=== PATIENT | female | born 1985 | race Caucasian/White ===

== ENCOUNTER 2019-11-23 22:42 | Emergency (ER) | payer SELFPAY ==
[~2019-11-23] VITALS: Ht 167.6 cm; Wt 63.6 kg
--- NOTE | 2019-11-23 23:14 | PHYS DOC ---
General Adult EDM: Chief Complaint: ANXIETY/PANIC ATTACK HPI: HPI: Patient is a 34 year old female presents with a chief complaint of shortness of breath and heart racing. Patient states she drank last night. She took a an unknown hangover tablet this a.m. around 10:00. Patient states all day she is not felt right she has had some chest discomfort associated with shortness of breath. Patient admits to drinking at least 4 beers this evening. She states she was out at a pond all day. On arrival patient's heart rate in the 120s. Review of Systems: Review of Systems: Constitutional: Denies fever or chills. [] Eyes: Denies change in visual acuity. [] HENT: Denies nasal congestion or sore throat. [] Respiratory: Positive shortness of breath. [] Cardiovascular: Positive tachycardia positive chest discomfort GI: Denies abdominal pain, nausea, vomiting, bloody stools or diarrhea. [] : Denies dysuria. [] Musculoskeletal: Denies back pain or joint pain. [] Integument: Denies rash. [] Neurologic: Denies headache, focal weakness or sensory changes. [] Endocrine: Denies polyuria or polydipsia. [] Lymphatic: Denies swollen glands. [] Psychiatric: Denies depression or anxiety. [] Heart Score: Risk Factors: Risk Factors: DM, Current or recent (<one month) smoker, HTN, HLP, family history of CAD, obesity. Risk Scores: Score 0 - 3: 2.5% MACE over next 6 weeks - Discharge Home Score 4 - 6: 20.3% MACE over next 6 weeks - Admit for Clinical Observation Score 7 - 10: 72.7% MACE over next 6 weeks - Early Invasive Strategies Allergies: Allergies: Allergies Coded Allergies Type Severity Reaction Last Updated Verified Sulfa (Sulfonamide Antibiotics) Adverse Reaction Intermediate rash 11/23/19 Yes Physical Exam: PE: Constitutional: Well developed, well nourished, no acute distress, non-toxic appearance. [] HENT: Normocephalic, atraumatic, bilateral external ears normal, oropharynx moist, no oral exudates, nose normal. [] Eyes: PERRLA, EOMI, conjunctiva normal, no discharge. [] Neck: Normal range of motion, no tenderness, supple, no stridor. [] Cardiovascular: Tachycardia Lungs & Thorax: Bilateral breath sounds clear to auscultation [] Abdomen: Bowel sounds normal, soft, no tenderness, no masses, no pulsatile masses. [] Skin: Warm, dry, no erythema, no rash. [] Back: No tenderness, no CVA tenderness. [] Extremities: No tenderness, no cyanosis, no clubbing, ROM intact, no edema. [] Neurologic: Alert and oriented X 3, normal motor function, normal sensory function, no focal deficits noted. [] Psychologic: Affect normal, judgement normal,. [Anxious] EKG: EKG: EKG 2258 hours Sinus tachycardia heart rate 114 [] Radiology/Procedures: Radiology/Procedures: [] Impression: Patient was evaluated for chief complaint. Work-up consisted of laboratory analysis and EKG. Results reviewed and discussed with patient. Patient's potassium noted to be 2.7. Patient potassium replaced with p.o. and IV potassium. Patient also received IV fluids. EKG sinus tachycardia d-dimer within normal limits. Spoke to etiology of patient's symptoms related to unknown medication ingestion, dehydration, and hypo-kalemia Course & Med Decision Making: Course & Med Decision Making Pertinent Labs and Imaging studies reviewed. (See chart for details) [] Dragon Disclaimer: Dragon Disclaimer: This electronic medical record was generated, in whole or in part, using a voice recognition dictation system. Departure Departure Impression: Primary Impression: Anxiety Additional Impressions: Hypokalemia Dehydration Disposition: 01 HOME, SELF-CARE Condition: STABLE Referrals: TAYLOR NAVARRO MD (PCP) Patient Instructions: Dehydration, Adult, Hypokalemia Scripts Potassium Chloride (POTASSIUM CHLORIDE ) 20 Meq Tablet.er 20 MEQ PO DAILY for SUPPLEMENT for 10 Days, #10 TAB.SR Prov: MICHAEL CASEY DO 11/23/19 Justicifation of Admission Dx: Justifications for Admission: Justification of Admission Dx: N/A MICHAEL CASEY DO Nov 23, 2019 23:14
[2019-11-23] MEDS ORDERED: IV NORMAL SALINE 1000ML BAG 1,000 ML IV ONE (23:30)
[2019-11-23 23:31] LABS: BASO % 0 % (0-3); EOS % 0 % (0-3); HEMATOCRIT 39.7 % (36.0-47.0); HEMOGLOBIN 13.7 g/dL (12.0-15.5); LYMPH # 2.3 x10^3/uL (1.0-4.8); LYMPH % 32 % (24-48); MEAN CORPUSCULAR HEMOGLOBIN 32 pg (25-35); MEAN CORPUSCULAR HGB CONC 35 g/dL (31-37); MEAN CORPUSCULAR VOLUME 92 fL (79-100); MONO # 0.5 x10^3/uL (0.0-1.1); MONO % 7 % (0-9); NEUT # 4.3 x10^3/uL (1.8-7.7); NEUT % 60 % (31-73); PLATELET COUNT 192 x10^3/uL (140-400); RED BLOOD COUNT 4.31 x10^6/uL (3.50-5.40); RED CELL DISTRIBUTION WIDTH 12.9 % (11.5-14.5); WHITE BLOOD COUNT 7.2 x10^3/uL (4.0-11.0)
[2019-11-23 23:40] LABS: ALBUMIN 4.1 g/dL (3.4-5.0); ALBUMIN/GLOBULIN RATIO 1.1 (1.0-1.7); CALCIUM 9.3 mg/dL (8.5-10.1); CREATININE 1.1 mg/dL (0.6-1.0); GFR 57.2; TOTAL BILIRUBIN 0.4 mg/dL (0.2-1.0)
[2019-11-23 23:42] LABS: POTASSIUM 2.7 mmol/L (3.5-5.1)
[2019-11-23] MEDS ORDERED: POTASSIUM CHLORIDE 20 MEQ TABLET.ER. PO ONE (23:45)
[2019-11-23] MEDS ORDERED: POTA20TA4 PO (23:50)
[2019-11-24] MEDS: POTASSIUM CHLORIDE 10MEQ 100 ML IV SCH ×2 (00:04→01:00)
[2019-11-24 01:29] VITALS: BP 140/84
--- NOTE | 2019-11-25 07:55 | EKG ---
[facility] [address] [place] [address] Test Date: 2019-11-23 Test Time: 22:58:14 Pat Name: JOANA LORD Department: Room: Gender: F Supervisor [employer]: : 1985 Requested By: MICHAEL CASEY Order Number: [id number] Reading MD: Measurements Intervals [place] Rate: 114 P: -90 [place]: 92 QRS: 4 QRSD: 82 T: 26 QT: 296 QTc: 411 Interpretive Statements SUPRAVENTRICULAR RHYTHM OTHERWISE NORMAL ECG RI6.02 No previous ECG available for comparison
== END 2019-11-24 01:59 | disposition home or self-care (01) ==
LOC: ER 22:42
DX: F41.9 Anxiety disorder, unspecified (principal); E87.6 Hypokalemia; E86.0 Dehydration; R07.89 Other chest pain; Z88.2 Allergy status to sulfonamides
CPT/HCPCS: 36415; 80053; 83735; 85025; 85379; 93005; 96361; 96365; 99285; J3480; J7030

== ENCOUNTER 2020-02-10 13:37 | Emergency (ER) | payer SELFPAY ==
[~2020-02-10] VITALS: Ht 167.6 cm; Wt 70.0 kg
[~2020-02-10 13:37] MED LIST: POTA20TA4 PO
[2020-02-10 14:14] LABS: BASO % 0 % (0-3); EOS # 0.1 x10^3/uL (0.0-0.7); EOS % 1 % (0-3); HEMOGLOBIN 13.4 g/dL (12.0-15.5); LYMPH # 1.8 x10^3/uL (1.0-4.8); LYMPH % 29 % (24-48); MEAN CORPUSCULAR HEMOGLOBIN 32 pg (25-35); MEAN CORPUSCULAR HGB CONC 34 g/dL (31-37); MEAN CORPUSCULAR VOLUME 92 fL (79-100); MONO # 0.4 x10^3/uL (0.0-1.1); MONO % 6 % (0-9); NEUT # 3.9 x10^3/uL (1.8-7.7); NEUT % 63 % (31-73); PLATELET COUNT 194 x10^3/uL (140-400); RED BLOOD COUNT 4.23 x10^6/uL (3.50-5.40); RED CELL DISTRIBUTION WIDTH 12.9 % (11.5-14.5); WHITE BLOOD COUNT 6.3 x10^3/uL (4.0-11.0)
[2020-02-10 14:29] LABS: CALCIUM 8.6 mg/dL (8.5-10.1); CREATININE 0.8 mg/dL (0.6-1.0); GFR 82.6; POTASSIUM 3.5 mmol/L (3.5-5.1)
[2020-02-10 14:36] LABS: ALBUMIN 3.9 g/dL (3.4-5.0); ALBUMIN/GLOBULIN RATIO 1.1 (1.0-1.7); TOTAL BILIRUBIN 0.2 mg/dL (0.2-1.0); TOTAL PROTEIN 7.3 g/dL (6.4-8.2)
--- NOTE | 2020-02-10 15:17 | RAD ---
INDICATION: Reason: chest pain / Spl. Instructions: / History: COMPARISON: None. FINDINGS: Single view of chest obtained. No focal airspace consolidation or pulmonary edema. Cardiac silhouette is unremarkable. Nodular opacities projecting over lower lungs likely secondary to nipple shadow. IMPRESSION: * No focal airspace consolidation or edema. Electronically signed by: Moreno Bella MD (02/10/2020 3:14 PM) [id number]
--- NOTE | 2020-02-10 16:32 | EKG ---
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
[2020-02-10 16:49] VITALS: BP 142/70
[2020-02-10] MEDS ORDERED: ESOM20CA PO (17:10)
--- NOTE | 2020-02-10 17:10 | PHYS DOC ---
Past Medical History Past Medical History: No Pertinent History Past Surgical History: No Surgical History Smoking Status: Current Every Day Smoker Alcohol Use: Heavy General Adult EDM: Chief Complaint: CHEST PAIN HPI: HPI: Patient is a 34-year-old female who presents to the emergency room complaining of intermittent chest pain. She has been having problems for the last couple of weeks. These typically get worse when she is at work setting and working or in her car setting. She is never had anything like this prior. She is concerned that there could be something wrong with her heart. She denies any palpitatio ns. She denies any shortness of breath. Denies nausea, vomiting, sweating, chills, URI symptoms. She has a cardiology appointment on Sunday. Review of Systems: Review of Systems: General: Denies fever, chills, sweats, fatigue Eyes: Denies drainage, blurred vision, eye redness HENT: Denies rhinorrhea, sore throat, earache Respiratory: Denies cough, shortness of breath, wheezing Cardiac: Denies edema, palpitations. Reports chest pain GI: Denies abdominal pain, Nausea, vomiting MSK: Denies back pain, neck pain Skin: Denies rash, jaundice Neuro: Denies headache, dizziness Psychiatric: Denies SI/HI Heart Score: Risk Factors: Risk Factors: DM, Current or recent (<one month) smoker, HTN, HLP, family history of CAD, obesity. Risk Scores: Score 0 - 3: 2.5% MACE over next 6 weeks - Discharge Home Score 4 - 6: 20.3% MACE over next 6 weeks - Admit for Clinical Observation Score 7 - 10: 72.7% MACE over next 6 weeks - Early Invasive Strategies Allergies: Allergies: Allergies Coded Allergies Type Severity Reaction Last Updated Verified Sulfa (Sulfonamide Antibiotics) Adverse Reaction Intermediate rash 11/23/19 Yes Physical Exam: PE: General: Awake, alert, NAD. Well Nourished, well hydrated. Cooperative HEENT: Atraumatic, EOMI, PERRL, airway patent, moist oral mucosa Neck: Supple, trachea midline Respiratory: CTA bilaterally, normal effort, no wheezing/crackles CV: RRR, no murmur, cap refill <2 GI: Soft, nondistended, nontender, no masses MSK: No obvious deformities Skin: Warm, dry, intact Neuro: A&O x3, speech NL, sensory and motor grossly intact, no focal deficits Psych: Normal affect, normal mood, not suicidal or homicidal Current Patient Data: Labs: Laboratory Tests Test 02/10/20 13:53 02/10/20 13:55 White Blood Count 6.3 x10^3/uL (4.0-11.0) Red Blood Count 4.23 x10^6/uL (3.50-5.40) Hemoglobin 13.4 g/dL (12.0-15.5) Hematocrit 39.0 % (36.0-47.0) Mean Corpuscular Volume 92 fL (79-100) Mean Corpuscular Hemoglobin 32 pg (25-35) Mean Corpuscular Hemoglobin Concent 34 g/dL (31-37) Red Cell Distribution Width 12.9 % (11.5-14.5) Platelet Count 194 x10^3/uL (140-400) Neutrophils (%) (Auto) 63 % (31-73) Lymphocytes (%) (Auto) 29 % (24-48) Monocytes (%) (Auto) 6 % (0-9) Eosinophils (%) (Auto) 1 % (0-3) Basophils (%) (Auto) 0 % (0-3) Neutrophils # (Auto) 3.9 x10^3/uL (1.8-7.7) Lymphocytes # (Auto) 1.8 x10^3/uL (1.0-4.8) Monocytes # (Auto) 0.4 x10^3/uL (0.0-1.1) Eosinophils # (Auto) 0.1 x10^3/uL (0.0-0.7) Basophils # (Auto) 0.0 x10^3/uL (0.0-0.2) D-Dimer (Alma) < 0.27 ug/mlFEU Sodium Level 140 mmol/L (136-145) Potassium Level 3.5 mmol/L (3.5-5.1) Chloride Level 103 mmol/L (98-107) Carbon Dioxide Level 27 mmol/L (21-32) Anion Gap 10 (6-14) Blood Urea Nitrogen 10 mg/dL (7-20) Creatinine 0.8 mg/dL (0.6-1.0) Estimated GFR (Cockcroft-Gault) 82.6 BUN/Creatinine Ratio 13 (6-20) Glucose Level 121 mg/dL (70-99) H Calcium Level 8.6 mg/dL (8.5-10.1) Total Bilirubin 0.2 mg/dL (0.2-1.0) Aspartate Amino Transferase (AST) 17 U/L (15-37) Alanine Aminotransferase (ALT) 21 U/L (14-59) Alkaline Phosphatase 86 U/L (46-116) Troponin I Quantitative < 0.017 ng/mL (0.000-0.055) Total Protein 7.3 g/dL (6.4-8.2) Albumin 3.9 g/dL (3.4-5.0) Albumin/Globulin Ratio 1.1 (1.0-1.7) POC Urine HCG, Qualitative Hcg negative (Negative) Laboratory Tests 02/10/20 13:53 Laboratory Tests 02/10/20 13:53 Vital Signs: Vital Signs Date Time Temp Pulse Resp B/P (MAP) Pulse Ox O2 Delivery O2 Flow Rate FiO2 02/10/20 13:40 98.0 90 18 168/115 (132) 98 Room Air 98.0 EKG: EKG: [] Radiology/Procedures: Radiology/Procedures: [] Course & Med Decision Making: Course & Med Decision Making Pertinent Labs and Imaging studies reviewed. (See chart for details) Patient is a 34-year-old female who presents to the emergency room complaining of atypical chest pain. The pain she gets typically are a spasm-like pain in the middle of her chest. She could have coronary artery spasms, esophageal spasms, reflux, musculoskeletal pain. I believe that ACS is highly unlikely. EKG is normal. She does have pain that is worse with deep breathing and some shortness of breath occasionally. D-dimer was done and is negative. Chest pain work-up was done on including a CBC, CMP, chest x-ray. Work-up was unremarkable I have discussed with her that she should follow-up with a front office associate as planned. Patient's test results and vitals while in the ED were fully reviewed and discussed with the patient. Patient is stable and at this time does not need admission to the hospital. We have discussed strict return precautions and the importance of following up with their Primary Care Physician. Patient stated understanding and was given an opportunity to ask any questions. Patient is in agreement with plan. Alba Disclaimer: Alba Disclaimer: This electronic medical record was generated, in whole or in part, using a voice recognition dictation system. Departure Departure Impression: Primary Impression: Chest pain Disposition: HOME, SELF-CARE Condition: STABLE Referrals: TAYLOR NAVARRO MD (PCP) Patient Instructions: Chest Pain (Nonspecific) Scripts Esomeprazole Magnesium (NEXIUM CAPSULE) 20 Mg Capsule.dr 1 CAP PO DAILY, #14 CAP 0 Refills Prov: ARETHA NOVAK MD 02/10/20 Justicifation of Admission Dx: Justifications for Admission: Justification of Admission Dx: N/A ARETHA NOVAK MD Feb 10, 2020 17:10
== END 2020-02-10 17:20 | disposition home or self-care (01) ==
LOC: ER 13:37
DX: R07.89 Other chest pain (principal); F17.200 Nicotine dependence, unspecified, uncomplicated; F10.10 Alcohol abuse, uncomplicated; Z88.2 Allergy status to sulfonamides
CPT/HCPCS: 36415; 71045; 80053; 81025; 84484; 85025; 85379; 93005; 99285

== ENCOUNTER 2021-01-24 16:39 | Emergency (ER) | payer SELFPAY ==
[~2021-01-24] VITALS: Ht 167.6 cm; Wt 63.7 kg
[~2021-01-24 16:39] MED LIST changes: +ESOM20CA PO
[2021-01-24] MEDS ORDERED: IV NORMAL SALINE 1000ML BAG 1,000 ML IV ONE (18:30)
--- NOTE | 2021-01-24 18:46 | PHYS DOC ---
Past Medical History Past Medical History: Anxiety Additional Past Medical Histor: PANIC ATTACKS Past Surgical History: No Surgical History Smoking Status: Current Every Day Smoker Alcohol Use: Occasionally General Adult EDM: Chief Complaint: ANXIETY/PANIC ATTACK Problems: (1) Anxiety attack HPI: HPI: Patient is a 35 year old female with a history of anxiety who presents with anxiety attack with prolonged palpitations and dizziness since onset. 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 She states around 3:00 she had a panic attack. She says that she attempted deep breathing and secluding herself without any symptom relief. She reports associated dry mouth despite having drank significant water today. She states she gets panic attacks about 3 times a month, but this 1 has lasted longer. She says that she took 0.5 mg Xanax this morning followed by her morning coffee. She denies chest pain, shortness of breath, cough, N/V/D, abdominal pain. She has no other complaints at this time. Review of Systems: Review of Systems: ROS negative except as mentioned in HPI. Heart Score: C/O Chest Pain: No Current Medications: Current Medications Medications (Trade) Dose Ordered Sig/Judy Start Time Stop Time Status Last Admin Dose Admin Lorazepam (Ativan Inj) 1 mg 1X ONCE 01/24/21 18:30 01/24/21 18:31 DC 01/24/21 18:30 1 MG Sodium Chloride 1,000 ml @ 1,000 mls/hr 1X ONCE 01/24/21 18:30 01/24/21 19:29 01/24/21 18:36 1,000 MLS/HR Allergies: Allergies: Allergies Coded Allergies Type Severity Reaction Last Updated Verified Sulfa (Sulfonamide Antibiotics) Adverse Reaction Intermediate rash 11/23/19 Yes Physical Exam: PE: Constitutional: Well developed, well nourished, no acute distress, non-toxic appearance. [] HENT: Normocephalic, atraumatic, bilateral external ears normal, oropharynx moist, no oral exudates, nose normal. [] Eyes: PERRLA, EOMI, conjunctiva normal, no discharge. [] Neck: Normal range of motion, no tenderness, supple, no stridor. [] Cardiovascular:Heart rate regular rhythm, no murmur [] Lungs & Thorax: Bilateral breath sounds clear to auscultation [] Abdomen: Bowel sounds normal, soft, no tenderness, no masses, no pulsatile masses. [] Skin: Warm, dry, no erythema, no rash. [] Back: No tenderness, no CVA tenderness. [] Extremities: No tenderness, no cyanosis, no clubbing, ROM intact, no edema. [] Neurologic: Alert and oriented X 3, normal motor function, normal sensory function, no focal deficits noted. [] Psychologic: Affect normal, judgement normal, mood normal. [] Current Patient Data: Labs: Laboratory Tests Test 01/24/21 17:44 POC Urine HCG, Qualitative Hcg negative (Negative) Vital Signs: Vital Signs Date Time Temp Pulse Resp B/P (MAP) Pulse Ox O2 Delivery O2 Flow Rate FiO2 01/24/21 17:45 99.0 107 18 158/90 (112) 99 Room Air 99.0 EKG: EKG: EKG Interpreted by Dr. Stewart: Tachycardia 102 bpm with regular rhythm and no ectopic beats. No concerning ST-T wave changes. Course & Med Decision Making: Course & Med Decision Making Pertinent Labs and Imaging studies reviewed. (See chart for details) EKG was ordered to rule out STEMI. Patient will be given Ativan to relieve anxiety. On revisit after 1 g of Ativan was administered, patient is still feeling slightly anxious. Repeat dose will be given. After her second dose, patient states that her palpitations have resolved and she is feeling much more relaxed. She is comfortable going home at this time. Dragon Disclaimer: Dragon Disclaimer: This electronic medical record was generated, in whole or in part, using a voice recognition dictation system. Departure Departure Disposition: HOME / SELF CARE / HOMELESS Condition: STABLE Referrals: TAYLOR NAVARRO MD (PCP) Patient Instructions: Anxiety and Panic Attacks, [id number] BLAZE MIRZA Jan 24, 2021 18:46
[2021-01-24 21:09] VITALS: BP 157/6
--- NOTE | 2021-01-25 00:58 | EKG ---
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
== END 2021-01-24 21:15 | disposition home or self-care (01) ==
LOC: ER 16:39
DX: F41.9 Anxiety disorder, unspecified (principal); R42 Dizziness and giddiness; R00.2 Palpitations; F17.200 Nicotine dependence, unspecified, uncomplicated; Z88.2 Allergy status to sulfonamides
CPT/HCPCS: 81025; 93005; 96361; 96374; 96376; 99285; J2060; J7030